=== PATIENT | female | born 1955 | race Two or more races ===

== ENCOUNTER 2021-02-20 10:35 | Outpatient (CLI) | payer MEDICARE ==
--- NOTE | 2021-02-20 12:04 | DEXA Report ---
PROCEDURE: Dexa Spine and/or Hip INDICATIONS: MENOPAUSAL TECHNIQUE: Dual energy x-ray absorptiometry (DXA) was performed on a [employer] System. Regions measur ed are the AP Spine, femoral neck, and if needed forearm. COMPARISON: None. FINDINGS: Lumbar Spine: Bone Mineral Density 0.944 g/cm/cm,T score -2.0, Left Hip: Bone Mineral Density 0.807 g/cm/cm,T score -1.6, Left Femoral Neck: Bone Mineral Density 0.733 g/cm/cm, T score -2.2, (T score greater or equal to -1.0: NORMAL) (T score from -1.1 to -2.4: OSTEOPENIA) (T score less than or equal to -2.5 to: OSTEOPOROSIS) Impression: Osteopenia. Patients with diagnosis of osteoporosis or osteopenia should have regular bone mineral density assess ment. For those eligible for Medicare, routine testing is allowed once every 2 years. Testing frequ ency can be increased for patients who have rapidly progressing disease or for those who are receivin g medical therapy to restore bone mass. Reviewed by: Waldemar Gaviria MD on 02/20/2021 12:03 PM PDT Approved by: Waldemar Gaviria MD on 02/20/2021 12:03 PM PDT Station ID: [id number]
== END 2021-02-20 10:36 | disposition home or self-care (01) ==
LOC: DI 10:35
PROVIDERS: ATTEND Physician Assistant
DX: M85.89 Other specified disorders of bone density and structure, multiple sites (principal)

== ENCOUNTER 2021-02-20 10:38 | Outpatient (CLI) | payer MEDICARE ==
--- NOTE | 2021-02-23 12:57 | Mammography Report ---
BILATERAL DIGITAL SCREENING MAMMOGRAM 3D/2D: 02/20/2021 CLINICAL: Baseline exam. Routine screening. Comparison is made to exam dated: 07/11/2008 mammogram - [facility]. There are sca ttered fibroglandular elements in both breasts. No significant masses, calcifications, or other findings are seen in either breast. There has been no significant interval change. IMPRESSION: NEGATIVE There is no mammographic evidence of malignancy. A 1 year screening mammogram is recommended. This exam was interpreted at Station ID: [id number]. NOTE: For mammograms, a report in lay terms will be sent to the patient. Approximately 15% of breast malignancies will not be visualized mammographically. In the management of a palpable breast mass, a negative mammogram must not discourage biopsy of a clinically suspicious lesion. Electronically Signed By: Sarath Lawrence M.D. aty/penrad:02/20/2021 12:34:45 ACR BI-RADS Category 1: Negative 3341F PARENCHYMAL PATTERN: (A) - The breast(s) demonstrate(s) scattered fibroglandular densities. BI-RADS CATEGORY: (1) - 1 RECOMMENDATION: (ANNUAL) - Recommend routine annual screening mammography. [id number] 1 year screening LATERALITY: (B)
== END 2021-02-20 10:39 | disposition home or self-care (01) ==
LOC: DI 10:38
PROVIDERS: ATTEND Physician Assistant
DX: Z12.31 Encounter for screening mammogram for malignant neoplasm of breast (principal)

== ENCOUNTER 2021-03-31 16:53 | Outpatient (CLI) | payer MEDICARE | END 2021-03-31 16:54 | disposition home or self-care (01) | LOC: COV 16:53 | PROVIDERS: ATTEND Family Medicine | DX: R06.02 Shortness of breath (principal); R07.0 Pain in throat; R09.81 Nasal congestion; J34.89 Other specified disorders of nose and nasal sinuses; Z20.822 Contact with and (suspected) exposure to COVID-19 ==

== ENCOUNTER 2021-04-27 06:31 | Day surgery (SDC) | payer MEDICARE ==
[2021-04-27] MEDS ORDERED: LACTATED RINGERS 1,000 ML IV ONE (07:02)
[2021-04-27] MEDS ORDERED: ONDANSETRON 4 MG/2 ML VIAL ONE (07:07)
[2021-04-27] MEDS ORDERED: MIDAZOLAM 2 MG/2 ML VIAL ONE ×2 (09:51→10:15)
[2021-04-27] MEDS ORDERED: fentaNYL 250 MCG/5 ML VIAL ONE (09:52)
[2021-04-27] MEDS ORDERED: LACTATED RINGERS 300 ML IV ONE (10:36)
[2021-04-27 11:12] VITALS: BP 132/60
== END 2021-04-27 06:32 | disposition home or self-care (01) ==
LOC: SDS 06:31
PROVIDERS: ATTEND Surgery
PROC: 0DBN8ZZ Excision of Sigmoid Colon, Via Natural or Artificial Opening Endoscopic (ICD-10-PCS; principal; 2021-04-27 07:30)
DX: Z12.11 Encounter for screening for malignant neoplasm of colon (principal); K63.5 Polyp of colon; K64.8 Other hemorrhoids
CPT/HCPCS: 45380; J3010; J7120

== ENCOUNTER 2022-12-28 16:21 | Outpatient (CLI) | payer MEDICARE ==
--- NOTE | 2022-12-28 11:05 | XRAY Report ---
PROCEDURE: Shoulder 3 View RT INDICATIONS: BICEPS TENDINITIS OF RIGHT SHOULDER TECHNIQUE: 3 views of the shoulder were acquired. COMPARISON: None. FINDINGS: Bones: No fractures or dislocations. No suspicious bony lesions. Mild acromioclavicular joint degen eration. Visualized ribs appear intact. Soft tissues: Prominent calcifications over the humeral head consistent with rotator cuff calcific te ndinitis. IMPRESSION: 1. Rotator cuff calcific tendinitis. 2. Mild degenerative joint disease. Reviewed by: Sabrina Davis MD on 12/28/2022 10:03 AM DIANA Approved by: Sabrina Davis MD on 12/28/2022 10:03 AM DIANA Station ID: [id number]
== END 2022-12-28 16:22 | disposition home or self-care (01) ==
LOC: DI.S 16:21
PROVIDERS: ATTEND Emergency Medicine
DX: M75.21 Bicipital tendinitis, right shoulder (principal); M75.31 Calcific tendinitis of right shoulder; M19.011 Primary osteoarthritis, right shoulder

== ENCOUNTER 2024-06-20 12:35 | Outpatient (CLI) | payer MEDICARE ==
--- NOTE | 2024-06-22 07:55 | Mammography Report ---
BILATERAL DIGITAL SCREENING MAMMOGRAM 3D/2D: 06/20/2024 CLINICAL: Routine screening. Comparison is made to exam dated: 02/20/2021 mammogram - [facility]. There are scattered areas of fibroglandular density in both breasts (category b / 25%-50% glandular t issue). No significant masses, calcifications, or other findings are seen in either breast. There has been no significant interval change. IMPRESSION: NEGATIVE There is no mammographic evidence of malignancy. A 1 year screening mammogram is recommended. Based on the Tyrer Cuzick model (a risk assessment model) the patient's lifetime risk is 7.4% and her 10 year risk is 4.4%. According to the ACR, ACS, and NCCN guidelines, an annual breast MRI exam irvin g with mammogram is recommended if the patient's lifetime risk is 20% or greater. This exam was interpreted at Station ID: [id number]. NOTE: For mammograms, a report in lay terms will be sent to the patient. Approximately 15% of breast malignancies will not be visualized mammographically. In the management of a palpable breast mass, a negative mammogram must not discourage biopsy of a clinically suspicious lesion. Electronically Signed By: Nicol Garcia M.D., Ph.D. eb/penrad:06/21/2024 22:21:42 letter sent: No_Letter ACR BI-RADS Category 1: Negative 3341F PARENCHYMAL PATTERN: (A) - The breast(s) demonstrate(s) scattered fibroglandular densities. BI-RADS CATEGORY: (1) - 1 RECOMMENDATION: (ANNUAL) - Recommend routine annual screening mammography. [id number] 1 year screening LATERALITY: (B)
== END 2024-06-20 12:36 | disposition home or self-care (01) ==
LOC: DI 12:35
PROVIDERS: ATTEND Nurse Practitioner Family
DX: Z12.31 Encounter for screening mammogram for malignant neoplasm of breast (principal); R92.323 Mammographic fibroglandular density, bilateral breasts

== ENCOUNTER 2024-06-20 12:44 | Outpatient (CLI) | payer MEDICARE ==
--- NOTE | 2024-06-20 13:26 | DEXA Report ---
PROCEDURE: Dexa Spine and/or Hip INDICATIONS: OSTEOPENIA TECHNIQUE: Dual energy x-ray absorptiometry (DXA) was performed on a [employer] System. Regions measur ed are the AP Spine, femoral neck, and if needed forearm. COMPARISON: None FINDINGS: Lumbar Spine: Bone Mineral Density: 0.950 g/cm/cm,T score: -1.9. Left Femoral Neck: Bone Mineral Density: 0.69 g/cm/cm, T score: -2.5. Left Hip: Bone Mineral Density: 0.769 g/cm/cm,T score: -1.9. FRAX risk factors: None given. Not applicable (T score greater or equal to -1.0: NORMAL) (T score from -1.1 to -2.4: OSTEOPENIA) (T score less than or equal to -2.5 to: OSTEOPOROSIS) Impression: By WHO criteria, this patient has osteoporosis in the femoral neck with moderate to severe osteopenia lumbar spine and left hip. Patients with diagnosis of osteoporosis or osteopenia should have regular bone mineral density assess ment. For those eligible for Medicare, routine testing is allowed once every 2 years. Testing frequ ency can be increased for patients who have rapidly progressing disease or for those who are receivin g medical therapy to restore bone mass. Reviewed by: Janel Diaz MD on 06/20/2024 1:25 PM PDT Approved by: Janel Diaz MD on 06/20/2024 1:25 PM PDT Station ID: [id number]
== END 2024-06-20 12:45 | disposition home or self-care (01) ==
LOC: DI 12:44
PROVIDERS: ATTEND Nurse Practitioner Family
DX: M81.0 Age-related osteoporosis without current pathological fracture (principal)